=== PATIENT | male | born 2005 | race Caucasian/White ===

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

== ENCOUNTER 2023-11-03 21:18 | Emergency (ER) | payer MEDICAID, SELFPAY ==
[2023-11-03 21:38] VITALS: BP 173/103; PULSE 92; RESP 18; O2SAT 98
[2023-11-03 22:35] LABS: Abs Immature Grans 0.06 10^3/uL (0.0-0.06); Absolute Basophil Count 0.08 10^3/uL (0.0-0.2); Absolute Eosinophil Count 0.16 10^3/uL (0.0-0.7); Absolute Lymphocyte Count 2.08 10^3/uL (1.2-3.4); Absolute Monocyte Count 0.98 10^3/uL (0.1-0.8); Basophils % 0.7 %; Eosinophils % 1.4 %; HCT 48.9 % (40.0-50.0); HGB 16.6 g/dL (13.5-17.5); Immature Grans % 0.5 %; Lymphocytes % 17.8 %; MCH 26.8 pg (27.0-33.0); MCHC 33.9 % (32.0-36.0); MCV 79 fL (80-95); MPV 8.7 fL (8.0-11.0); Monocytes % 8.4 %; Neutrophils % 71.2 %; Platelet Count 351 10^3/uL (130-400); RDW 12.6 % (11.8-14.1); RDW-SD 35.6 fL
[2023-11-03 22:40] LABS: Absolute Neutrophil Count 8.33 10^3/uL (1.2-6.7)
[2023-11-03 22:49] LABS: ALT 77 U/L (16-63); AST 35 U/L (15-37); Albumin 4.4 g/dL (3.4-5.0); Alkaline Phosphatase 117 U/L (46-116); Anion Gap 10.9 mmol/L (3-11); BUN 14 mg/dL (7-18); CO2 27.1 mmol/L (21.0-32.0); Calcium 9.6 mg/dL (8.5-10.1); Chloride 102 mmol/L (98-107); Glucose 111 mg/dL (74-106); Lipase 29 U/L (16-77); Potassium 3.6 mmol/L (3.5-5.1); Sodium 140 mmol/L (136-145); Total Protein 8.4 g/dL (6.4-8.2)
[2023-11-03 22:56] LABS: Diff Comment RBC Morph Reviewed
[2023-11-03 22:57] LABS: RBC Morphology Normal
--- NOTE | 2023-11-03 22:59 | W.ED.GENAD ---
Discharge Plan Disposition Patient Disposition: Home Condition: Good Discharge Details Clinical Impression: Hemorrhoid Primary Care Provider: Libia Ceja ED Provider: Armen Holguin Home Meds and New Rx's Prescriptions: New docusate sodium [Colace] 100 mg capsule 100 mg PO BID Qty: 90 0RF hydrocortisone acetate [Anusol-HC] 25 mg suppository 25 mg WI DAILY Qty: 24 0RF No Action No Known Home Meds Discharge Instructions Instructions: Hemorrhoids (ED) Additional Instructions: At this time your blood work is stable. You do have evidence of hemorrhoids. Please take the Colace twice daily to help keep your stools soft. Make sure you are drinking 10 to 12 cups of noncaffeinated beverage per day to stay well-hydrated. Stick with the diet high in fiber. Please apply the Anusol suppositories every day as directed to help with the hemorrhoid. If the blood persists after this you will need to follow-up with a surgeon for potential nonemergent colonoscopy. If you notice any worsening of your symptoms, or any new symptoms such as vomiting, diarrhea, fever, chills, shortness of breath, chest pain, numbness, weakness, or fainting , please return immediately to the emergency department for reevaluation. Please follow up with your primary care provider as soon as possible for reassessment and reevaluation. As always, it was a pleasure participating in your medical care today. Referrals: Libia Ceja [Primary Care Provider] - Discharge Data Discharge Date/Time-TO BE ENTERED AT DEPARTURE: 11/03/23 23:17 HPI General Date/Time Provider Initiated Documentation: 11/03/23 22:10. HPI Narrative: This is a pleasant 18-year-old male with no significant past medical history except for GERD mild obesity and previous tonsillectomy who presents today for evaluation of blood in his stool. Patient states that for the last few weeks he has had notably hard stool, he had some burning when he would have hard stool passed. He initially noticed a small amount of blood a week or so ago on his toilet paper when he wiped, and then today he noticed that he had a diminished appetite, and had a bowel movement. No pain without bowel movement it was hard though in nature. There was blood on the stool. Then not long after that he had a small amount of chest blood that he passed without any clots. He denies any significant pain. No current burning or searing. He denies fever or chills. No abdominal pain or tenderness otherwise. He denies any history of colon cancer in his family. No other complaints at this time. No other modifying factors. Related Data Home Medications Medication Instructions Recorded Confirmed Unknown [No Known Home Meds] 09/17/21 11/03/23 docusate sodium 100 mg capsule 100 mg PO BID #90 caps 11/03/23 (Colace) hydrocortisone acetate 25 mg 25 mg WI DAILY #24 ea 11/03/23 rectal suppository (Anusol-HC) Previous Rx's Medication Instructions Recorded docusate sodium 100 mg capsule 100 mg PO BID #90 caps 11/03/23 (Colace) hydrocortisone acetate 25 mg 25 mg WI DAILY #24 ea 11/03/23 rectal suppository (Anusol-HC) Allergies Allergy/AdvReac Type Severity Reaction Status Date / Time No Known Allergies Allergy Unverified 11/03/23 21:42 General Stated Complaint: GI Bleed MATTHEW: 3 Review of Systems All systems reviewed & are unremarkable except as noted in HPI and below Exam Narrative Exam Narrative: 1.Const: Well-nourished, Well-developed, appearing stated age 2.Eyes: PERRL, no conjunctival injection, and symmetrical lids. 3.ENT: Atraumatic external nose and ears. Moist MM. Neck: Symmetric, trachea midline, No thyromegaly. 4.CVS: +S1/S2, No murmurs or gallops. Peripheral pulses 2+ and equal in all extremities. Brisk capillary refill in all extremities. 5.RESP: Unlabored respiratory effort. Clear to auscultation bilaterally. No wheezes rales or rhonchi 6.GI: Soft, Nontender/Nondistended, No hepatosplenomegaly. No guarding or rebound. Rectal exam was performed with female valve setter Maddison at bedside. Patient demonstrates a small external hemorrhoid, medium sized internal hemorrhoid. No active bleeding or blood at this time. 7.MSK: Normocephalic/Atraumatic, Extremities w/o deformity or ttp No cyanosis or clubbing, Normal movement of all extremities 8.Skin: Warm, Dry. No rashes or lesions. 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 Sensation grossly intact, no focal neurologic deficits. 10.Psych: (AAO) x3. Appropriate mood and affect Course Vital Signs Vital signs: Vital Signs Pulse 92 H 11/03/23 21:38 Respiratory Rate 18 11/03/23 21:38 Blood Pressure 173/103 H 11/03/23 21:38 Pulse Oximetry 98 11/03/23 21:38 Pulse 92 H 11/03/23 21:38 Respiratory Rate 18 11/03/23 21:38 Respiratory Effort Normal, Non-Labored 11/03/23 21:41 Blood Pressure 173/103 H 11/03/23 21:38 Blood Pressure Position Sitting 11/03/23 21:38 Pulse Oximetry 98 11/03/23 21:38 Oxygen Delivery Method Room Air 11/03/23 21:38 Oxygen Flow Rate 0 11/03/23 21:38 Pain Level 0 11/03/23 21:38 Lab/Test Results Lab/Test Results: Laboratory Tests Range/Units 11/03/23 22:29 WBC (4.4-10.8) 10^3/uL 11.70 H RBC (4.36-5.78) 10^6/uL 6.20 H Hgb (13.5-17.5) g/dL 16.6 Hct (40.0-50.0) % 48.9 MCV (80-95) fL 79 L MCH (27.0-33.0) pg 26.8 L MCHC (32.0-36.0) % 33.9 RDW (11.8-14.1) % 12.6 Plt Count (130-400) 10^3/uL 351 MPV (8.0-11.0) fL 8.7 Immature Gran % % 0.5 Neutrophils % % 71.2 Lymphocytes % % 17.8 Monocytes % % 8.4 Eosinophils % % 1.4 Basophils % % 0.7 Nucleated RBC % (0.0-0.3) % 0.0 Absolute Neutrophils (1.2-6.7) 10^3/uL 8.33 H Absolute Lymphocytes (1.2-3.4) 10^3/uL 2.08 Absolute Monocytes (0.1-0.8) 10^3/uL 0.98 H Absolute Eosinophils (0.0-0.7) 10^3/uL 0.16 Absolute Basophils (0.0-0.2) 10^3/uL 0.08 RBC Morphology Normal Sodium (136-145) mmol/L 140 Potassium (3.5-5.1) mmol/L 3.6 Chloride (98-107) mmol/L 102 Carbon Dioxide (21.0-32.0) mmol/L 27.1 Anion Gap (3-11) mmol/L 10.9 BUN (7-18) mg/dL 14 Creatinine (0.70-1.30) mg/dL 1.0 Est GFR (CKD-EPI 2020) (mL/min/1.73m2) 110.50 Glucose (74-106) mg/dL 111 H Calcium (8.5-10.1) mg/dL 9.6 Total Bilirubin (0.2-1.0) mg/dL 1.0 AST (15-37) U/L 35 ALT (16-63) U/L 77 H Alkaline Phosphatase (46-116) U/L 117 H Total Protein (6.4-8.2) g/dL 8.4 H Albumin (3.4-5.0) g/dL 4.4 Lipase (16-77) U/L 29 Medical Decision Making This is a pleasant 18-year-old male with no significant past medical history except for GERD mild obesity and previous tonsillectomy who presents today for evaluation of blood in his stool. Patient states that for the last few weeks he has had notably hard stool, he had some burning when he would have hard stool passed. He initially noticed a small amount of blood a week or so ago on his toilet paper when he wiped, and then today he noticed that he had a diminished appetite, and had a bowel movement. No pain without bowel movement it was hard though in nature. There was blood on the stool. Then not long after that he had a small amount of chest blood that he passed without any clots. He denies any significant pain. No current burning or searing. He denies fever or chills. No abdominal pain or tenderness otherwise. He denies any history of colon cancer in his family. No other complaints at this time. No other modifying factors. Exam demonstrates well-appearing male, no abdominal tenderness. Rectal exam was performed with female valve setter Maddison at bedside. There is evidence of a small external hemorrhoid and a small internal hemorrhoid as well. No active bleeding or blood at this time. Suspect this to be the cause of the patient's symptoms, however out of an abundance of precaution we will get screening labs. Monitor closely and reassess. 11:30 PM Laboratory workup shows normal hemoglobin, normal platelets, normal electrolytes and renal function. Lipase normal. Symptoms consistent with mild internal and external hemorrhoid. Symptoms inconsistent with massive GI bleed. BUN normal, no suspicion of bleeding proximal to the ligament of Treitz. Stools have been brown in color and not dark or melanotic otherwise. Suspect bleeding is secondary to hemorrhoids. Will give Anusol suppository prescription, recommend high-fiber diet, give Colace for stool softening. Discussed red flags for which to return. Discussed the importance of follow-up with PCP, and potential colonoscopy if symptoms persist. I have extensively reviewed the treatment plan and discharge instructions with the patient. I have addressed all patient concerns at this time. The patient was made aware of what symptoms to monitor for that would warrant a return to the emergency department. Discussed the plan with the patient, they demonstrate verbal understanding and agreement with our assessment and plan at this time. The documentation in this chart was dictated using Delphi dictation software. Please excuse any dictation errors. Quality:SDOH Health Related Social Needs: No Data to Display PFSH All Active Problems Hemorrhoid (Acute) Medical History Obesity GERD (gastroesophageal reflux disease) Surgical History History of tonsillectomy Social History Smoking/Tobacco Use Status: Current-Occasional Tobacco Type: e-cigarettes Smoking risk assessment performed?: Yes Alcohol Intake: current Alcohol Intake frequency: a few times a week Alcohol type: beer Drug use: Socially Substance use type: marijuana Do you feel safe at home: Yes Do you feel safe in your relationship?: Yes
== END 2023-11-03 23:17 | disposition home or self-care (01) ==
PROVIDERS: Emergency Provider Student in an Organized Health Care Education/Training Program; PCP Family Medicine
DX: K62.5 Hemorrhage of anus and rectum (principal); K64.8 Other hemorrhoids
CPT/HCPCS: 80053; 83690; 99283; 85025